=== PATIENT | female | born 1955 | race Caucasian/White ===

== ENCOUNTER 2017-07-06 22:44 | Inpatient (IN) | payer OTHER ==
[~2017-07-06] VITALS: Ht 157.5 cm; Wt 57.5 kg
[2017-07-06 23:25] LABS: HEMATOCRIT 38.9 % (36.0-46.0); HEMOGLOBIN 12.8 G/DL (11.9-15.5); MCH 28.2 PG (29.0-34.0); MCHC 32.9 G/DL (30.0-36.0); MCV 85.7 FL (83-99); PLATELET COUNT 229 K/uL (156-360); RBC DIS.WIDTH-CV 12.1 % (11.8-14.6); RBC DIS.WIDTH-SD 38.4 % (39-53); RED BLOOD COUNT 4.54 M/uL (3.80-5.20); WHITE BLOOD COUNT 7.2 K/uL (4.1-10.2)
[2017-07-06 23:29] LABS: CARBON DIOXIDE (BICARBONATE) 29.1 MEQ/L (20-31)
[2017-07-06 23:38] LABS: ALBUMIN 4.3 g/dL (3.2-4.8); CHLORIDE 106 mEq/L (99-109); POTASSIUM 3.7 mEq/L (3.7-5.4); SODIUM 142 mEq/L (136-147)
[2017-07-06 23:40] LABS: GLUCOSE 114 mg/dL (70-99); TOTAL PROTEIN 7.6 g/dL (6.4-8.3)
[2017-07-06 23:42] LABS: TOTAL BILIRUBIN 0.3 mg/dL (0.0-1.0)
[2017-07-06 23:43] LABS: SERUM ETHYL ALCOHOL < 10 mg/dL
[2017-07-06 23:44] LABS: CREATININE 0.7 mg/dL (0.6-1.3); GFR ESTIMATE (CALCULATED) > 59 mL/min/
[2017-07-06 23:45] LABS: ALKALINE PHOSPHATASE 106 IU/L (3-129); AST (GOT) 25 IU/L (2-34)
[2017-07-06 23:46] LABS: UREA NITROGEN (BUN) 13 mg/dL (9-23)
[2017-07-06 23:47] LABS: SALICYLATE < 5.0 MG/DL (15-30)
[2017-07-06 23:48] LABS: ACETAMINOPHEN (TYLENOL) < 10 mcg/mL (10-30); ALT (GPT) 8 IU/L (3-49); LIPASE 14 U/L (1.0-51.0)
[2017-07-07] VITALS (27 sets, daily range): BP systolic 129–180; BP diastolic 70–87
[2017-07-07 01:16] LABS: INTER. NORMALIZED RATIO 1.2
[2017-07-07 02:02] LABS: BASE EXCESS -0.2 mEq/L (-3 to +3); BICARBONATE 25.9 mEq/L (22-26); CARBOXY HGB 2.8 % (0-5); COMMENTS - BLOOD GASES A+C+; DEVICE VENT; METHEMOGLOBIN 1.1 % (0-1.5); PCO2 48 mm Hg (35-45); PO2 396 mm Hg (80-100); SITE RR; pH 7.34 (7.35-7.45)
[2017-07-07 02:03] LABS: FI02 100 %; MECHANICAL RATE 16 resp/min; MODE A/C; PEEP 8 CM/H20; PRES. SUPPORT 0 CM/H2O; TIDAL VOLUME 400 ML; TOTAL RESP RATE 16 resp/min
[2017-07-07 02:06] LABS: AMPHETAMINE NEGATIVE (500 ng/mL); BARBITURATES NEGATIVE (200 ng/mL); BENZODIAZEPINES PRESUMPTIVE POSITIVE (150 ng/mL); BUPRENORPHINE NEGATIVE (10 ng/mL); COCAINE NEGATIVE (150 ng/mL); METHADONE PRESUMPTIVE POSITIVE (200 ng/mL); METHAMPHETAMINE NEGATIVE (500 ng/mL); OPIATES (MORPHINE) PRESUMPTIVE POSITIVE (100 ng/mL); OXYCODONE PRESUMPTIVE POSITIVE (100 ng/mL); PHENCYCLIDINE NEGATIVE (25 ng/mL); PROPOXYPHENE NEGATIVE (300 ng/mL); THC CANNABINOIDS NEGATIVE (50 ng/mL); TRICYCLIC ANTIDEPRESSANTS NEGATIVE (300 ng/mL)
[2017-07-07 05:37] LABS: BENZODIAZEPINES, URINE SCREEN POSITIVE (200 ng/mL)
[2017-07-07 06:02] LABS: CHLORIDE 105 MEQ/L (99-109); CREATININE 0.6 MG/DL (0.6-1.3); GFR ESTIMATE (CALCULATED) > 59 mL/min/; GLUCOSE 146 mg/dL (70-99); POTASSIUM 3.3 MEQ/L (3.7-5.4); SODIUM 141 MEQ/L (136-147); UREA NITROGEN (BUN) 11 mg/dL (9-23)
[2017-07-07 06:12] LABS: BASOPHIL (%) 0.3 % (0-1); BASOPHIL COUNT 0.1 K/uL (0-0.1); EOSINOPHIL (%) 0.1 % (0-5); HEMATOCRIT 35.2 % (36.0-46.0); HEMOGLOBIN 11.5 G/DL (11.9-15.5); IMMATURE GRANULOCYTE (%) 0.5 % (0.0-0.7); LYMPHOCYTE (%) 3.2 % (15-42); LYMPHOCYTE COUNT 0.6 K/uL (1.0-2.8); MCH 28.3 PG (29.0-34.0); MCHC 32.7 G/DL (30.0-36.0); MCV 86.5 FL (83-99); MONOCYTE (%) 3.7 % (3-12); MONOCYTE COUNT 0.7 K/uL (0-0.8); NEUTROPHIL (%) 92.2 % (45-76); NEUTROPHIL COUNT 17.5 K/uL (1.8-6.4); PLATELET COUNT 196 K/uL (156-360); RBC DIS.WIDTH-CV 12.5 % (11.8-14.6); RBC DIS.WIDTH-SD 39.5 % (39-53); RED BLOOD COUNT 4.07 M/uL (3.80-5.20)
[2017-07-07 09:49] LABS: HEMOGLOBIN A1c (GLYCOHEMOGLOB) 5.2 % (Below 5.7)
[2017-07-08] VITALS (21 sets, daily range): BP systolic 115–174; BP diastolic 61–106
[2017-07-08 08:47] LABS: INTER. NORMALIZED RATIO 1.3
[2017-07-08 08:50] LABS: PTT 30.8 SEC (25-37)
[2017-07-08 09:16] LABS: ALBUMIN 3.4 G/DL (3.2-4.8); ALKALINE PHOSPHATASE 74 IU/L (3-129); ALT (GPT) 10 IU/L (3-49); AST (GOT) 29 IU/L (2-34); CREATININE 0.4 MG/DL (0.6-1.3); GFR ESTIMATE (CALCULATED) > 59 mL/min/; GLUCOSE 165 mg/dL (70-99); POTASSIUM 3.5 MEQ/L (3.7-5.4); SODIUM 148 MEQ/L (136-147); TOTAL BILIRUBIN 0.3 MG/DL (0.0-1.0); TOTAL PROTEIN 6.5 G/DL (6.4-8.3); UREA NITROGEN (BUN) 7 mg/dL (9-23)
[2017-07-08 09:20] LABS: CHLORIDE 116 MEQ/L (99-109)
[2017-07-09] VITALS (23 sets, daily range): BP systolic 102–153; BP diastolic 56–82
[2017-07-09 06:38] LABS: BASOPHIL (%) 0.3 % (0-1); EOSINOPHIL (%) 0.1 % (0-5); HEMATOCRIT 30.9 % (36.0-46.0); HEMOGLOBIN 9.7 G/DL (11.9-15.5); IMMATURE GRANULOCYTE (%) 1.1 % (0.0-0.7); LYMPHOCYTE (%) 12.4 % (15-42); LYMPHOCYTE COUNT 1.9 K/uL (1.0-2.8); MCH 27.7 PG (29.0-34.0); MCHC 31.4 G/DL (30.0-36.0); MCV 88.3 FL (83-99); MONOCYTE (%) 7.2 % (3-12); MONOCYTE COUNT 1.1 K/uL (0-0.8); NEUTROPHIL (%) 78.9 % (45-76); NEUTROPHIL COUNT 12.2 K/uL (1.8-6.4); PLATELET COUNT 143 K/uL (156-360); RBC DIS.WIDTH-CV 12.8 % (11.8-14.6); RBC DIS.WIDTH-SD 41.3 % (39-53); WHITE BLOOD COUNT 15.5 K/uL (4.1-10.2)
[2017-07-09 07:42] LABS: ALBUMIN 3.1 G/DL (3.2-4.8); CHLORIDE 119 MEQ/L (99-109); MAGNESIUM 1.7 mg/dl (1.3-2.7); POTASSIUM 3.3 MEQ/L (3.7-5.4); SODIUM 149 MEQ/L (136-147); TOTAL BILIRUBIN 0.4 MG/DL (0.0-1.0)
[2017-07-09 07:47] LABS: ALKALINE PHOSPHATASE 71 IU/L (3-129); ALT (GPT) 8 IU/L (3-49); AST (GOT) 20 IU/L (2-34); CREATININE 0.4 MG/DL (0.6-1.3); GFR ESTIMATE (CALCULATED) > 59 mL/min/; GLUCOSE 130 mg/dL (70-99); PHOSPHORUS 2.2 mg/dL (2.5-4.9); UREA NITROGEN (BUN) 11 mg/dL (9-23)
[2017-07-09 07:49] LABS: TOTAL PROTEIN 5.5 G/DL (6.4-8.3)
[2017-07-09 10:33] LABS: INTER. NORMALIZED RATIO 1.2
[2017-07-09 10:36] LABS: PTT 29.2 SEC (25-37)
[2017-07-09 10:57] LABS: HIGH-SENS C-REACTIVE PROTEIN > 8.00 MG/DL (0.02-0.20)
[2017-07-10] VITALS (25 sets, daily range): BP systolic 113–167; BP diastolic 59–84
[2017-07-10 05:41] LABS: BASOPHIL (%) 0.4 % (0-1); BASOPHIL COUNT 0.1 K/uL (0-0.1); EOSINOPHIL (%) 0.6 % (0-5); EOSINOPHIL COUNT 0.1 K/uL (0-0.3); HEMATOCRIT 30.4 % (36.0-46.0); HEMOGLOBIN 9.5 G/DL (11.9-15.5); IMMATURE GRANULOCYTE (%) 0.5 % (0.0-0.7); LYMPHOCYTE (%) 17.5 % (15-42); LYMPHOCYTE COUNT 2.1 K/uL (1.0-2.8); MCH 27.5 PG (29.0-34.0); MCHC 31.3 G/DL (30.0-36.0); MCV 88.1 FL (83-99); MONOCYTE (%) 6.1 % (3-12); MONOCYTE COUNT 0.7 K/uL (0-0.8); NEUTROPHIL (%) 74.9 % (45-76); NEUTROPHIL COUNT 8.8 K/uL (1.8-6.4); RBC DIS.WIDTH-CV 13.2 % (11.8-14.6); RBC DIS.WIDTH-SD 42.3 % (39-53); RED BLOOD COUNT 3.45 M/uL (3.80-5.20); WHITE BLOOD COUNT 11.7 K/uL (4.1-10.2)
[2017-07-10 06:08] LABS: ALBUMIN 2.7 G/DL (3.2-4.8); ALKALINE PHOSPHATASE 58 IU/L (3-129); ALT (GPT) 9 IU/L (3-49); AST (GOT) 19 IU/L (2-34); CHLORIDE 115 MEQ/L (99-109); CREATININE 0.4 MG/DL (0.6-1.3); GFR ESTIMATE (CALCULATED) > 59 mL/min/; GLUCOSE 137 mg/dL (70-99); HIGH-SENS C-REACTIVE PROTEIN 4.78 MG/DL (0.02-0.20); MAGNESIUM 1.8 mg/dl (1.3-2.7); POTASSIUM 3.6 MEQ/L (3.7-5.4); SODIUM 144 MEQ/L (136-147); TOTAL PROTEIN 5.6 G/DL (6.4-8.3); UREA NITROGEN (BUN) 11 mg/dL (9-23)
[2017-07-10 06:15] LABS: PHOSPHORUS 3.2 mg/dL (2.5-4.9); TOTAL BILIRUBIN 0.3 MG/DL (0.0-1.0)
[2017-07-10 06:25] LABS: PLAT.SUFFICIENCY DECREASED; PLATELET CLUMPS PRESENT - PLATELET COUNTS APPEARS DECREASED
[2017-07-10 06:26] LABS: PLATELET COUNT UNABLE TO REPORT K/uL (156-360)
[2017-07-11] VITALS (23 sets, daily range): BP systolic 132–179; BP diastolic 71–99
[2017-07-11 06:09] LABS: BASOPHIL (%) 0.5 % (0-1); BASOPHIL COUNT 0.1 K/uL (0-0.1); EOSINOPHIL (%) 0.1 % (0-5); HEMATOCRIT 34.8 % (36.0-46.0); HEMOGLOBIN 11.2 G/DL (11.9-15.5); LYMPHOCYTE COUNT 2.3 K/uL (1.0-2.8); MCH 27.7 PG (29.0-34.0); MCHC 32.2 G/DL (30.0-36.0); MCV 86.1 FL (83-99); MONOCYTE (%) 9.2 % (3-12); MONOCYTE COUNT 1.2 K/uL (0-0.8); NEUTROPHIL (%) 72.2 % (45-76); NEUTROPHIL COUNT 9.6 K/uL (1.8-6.4); PLATELET COUNT 214 K/uL (156-360); RBC DIS.WIDTH-CV 12.8 % (11.8-14.6); RBC DIS.WIDTH-SD 40.1 % (39-53); RED BLOOD COUNT 4.04 M/uL (3.80-5.20); WHITE BLOOD COUNT 13.3 K/uL (4.1-10.2)
[2017-07-11 06:28] LABS: ALBUMIN 3.5 G/DL (3.2-4.8); ALKALINE PHOSPHATASE 62 IU/L (3-129); ALT (GPT) 12 IU/L (3-49); AST (GOT) 26 IU/L (2-34); CHLORIDE 111 MEQ/L (99-109); CREATININE 0.4 MG/DL (0.6-1.3); GFR ESTIMATE (CALCULATED) > 59 mL/min/; GLUCOSE 114 mg/dL (70-99); MAGNESIUM 1.8 mg/dl (1.3-2.7); PHOSPHORUS 3.2 mg/dL (2.5-4.9); POTASSIUM 3.4 MEQ/L (3.7-5.4); SODIUM 147 MEQ/L (136-147); UREA NITROGEN (BUN) 13 mg/dL (9-23)
[2017-07-11 06:33] LABS: TOTAL BILIRUBIN 0.6 MG/DL (0.0-1.0); TOTAL PROTEIN 6.7 G/DL (6.4-8.3)
[2017-07-11 16:58] LABS: HIGH-SENS C-REACTIVE PROTEIN 4.22 MG/DL (0.02-0.20)
[2017-07-12] VITALS (22 sets, daily range): BP systolic 119–171; BP diastolic 68–93
[2017-07-12 05:11] LABS: BASOPHIL (%) 0.5 % (0-1); BASOPHIL COUNT 0.1 K/uL (0-0.1); EOSINOPHIL (%) 0 % (0-5); HEMATOCRIT 35.1 % (36.0-46.0); HEMOGLOBIN 11.6 G/DL (11.9-15.5); IMMATURE GRANULOCYTE (%) 1.7 % (0.0-0.7); LYMPHOCYTE (%) 14.4 % (15-42); LYMPHOCYTE COUNT 2.5 K/uL (1.0-2.8); MCH 28.4 PG (29.0-34.0); MCV 85.8 FL (83-99); MONOCYTE (%) 11.6 % (3-12); NEUTROPHIL (%) 71.8 % (45-76); NEUTROPHIL COUNT 12.5 K/uL (1.8-6.4); PLATELET COUNT 265 K/uL (156-360); RBC DIS.WIDTH-CV 13.2 % (11.8-14.6); RBC DIS.WIDTH-SD 41.3 % (39-53); RED BLOOD COUNT 4.09 M/uL (3.80-5.20); WHITE BLOOD COUNT 17.4 K/uL (4.1-10.2)
[2017-07-12 05:23] LABS: ALBUMIN 3.7 g/dL (3.2-4.8); CHLORIDE 110 mEq/L (99-109); POTASSIUM 3.5 mEq/L (3.7-5.4); SODIUM 146 mEq/L (136-147)
[2017-07-12 05:24] LABS: MAGNESIUM 2.1 mg/dL (1.3-2.7)
[2017-07-12 05:26] LABS: GLUCOSE 133 mg/dL (70-99); TOTAL PROTEIN 6.9 g/dL (6.4-8.3)
[2017-07-12 05:29] LABS: PHOSPHORUS 4.3 mg/dL (2.5-4.9)
[2017-07-12 05:30] LABS: CREATININE 0.5 mg/dL (0.6-1.3); GFR ESTIMATE (CALCULATED) > 59 mL/min/
[2017-07-12 05:31] LABS: AST (GOT) 24 IU/L (2-34); UREA NITROGEN (BUN) 17 mg/dL (9-23)
[2017-07-12 05:32] LABS: ALT (GPT) 14 IU/L (3-49)
[2017-07-12 05:39] LABS: ALKALINE PHOSPHATASE 70 IU/L (3-129); TOTAL BILIRUBIN 0.7 mg/dL (0.0-1.0)
[2017-07-13] VITALS (26 sets, daily range): BP systolic 114–163; BP diastolic 60–88
[2017-07-13 06:10] LABS: BASOPHIL (%) 0.4 % (0-1); BASOPHIL COUNT 0.1 K/uL (0-0.1); EOSINOPHIL (%) 0.2 % (0-5); HEMATOCRIT 31.6 % (36.0-46.0); HEMOGLOBIN 9.8 G/DL (11.9-15.5); IMMATURE GRANULOCYTE (%) 1.2 % (0.0-0.7); LYMPHOCYTE (%) 18.2 % (15-42); LYMPHOCYTE COUNT 2.3 K/uL (1.0-2.8); MCH 27.3 PG (29.0-34.0); MONOCYTE (%) 11.4 % (3-12); MONOCYTE COUNT 1.5 K/uL (0-0.8); NEUTROPHIL (%) 68.6 % (45-76); NEUTROPHIL COUNT 8.9 K/uL (1.8-6.4); PLATELET COUNT 272 K/uL (156-360); RBC DIS.WIDTH-CV 13.2 % (11.8-14.6); RBC DIS.WIDTH-SD 42.5 % (39-53); RED BLOOD COUNT 3.59 M/uL (3.80-5.20); WHITE BLOOD COUNT 12.9 K/uL (4.1-10.2)
[2017-07-13 06:32] LABS: ALBUMIN 3.1 G/DL (3.2-4.8); ALKALINE PHOSPHATASE 48 IU/L (3-129); ALT (GPT) 11 IU/L (3-49); AST (GOT) 20 IU/L (2-34); CHLORIDE 111 MEQ/L (99-109); CREATININE 0.4 MG/DL (0.6-1.3); GFR ESTIMATE (CALCULATED) > 59 mL/min/; GLUCOSE 125 mg/dL (70-99); MAGNESIUM 1.9 mg/dl (1.3-2.7); PHOSPHORUS 3.5 mg/dL (2.5-4.9); POTASSIUM 3.9 MEQ/L (3.7-5.4); SODIUM 144 MEQ/L (136-147); TOTAL BILIRUBIN 0.5 MG/DL (0.0-1.0); TOTAL PROTEIN 6.1 G/DL (6.4-8.3); UREA NITROGEN (BUN) 22 mg/dL (9-23)
[2017-07-13 11:38] LABS: BASE EXCESS -0.1 mEq/L (-3 to +3); BICARBONATE 23.6 mEq/L (22-26); CARBOXY HGB 2.6 % (0-5); METHEMOGLOBIN 0.6 % (0-1.5)
[2017-07-13 11:39] LABS: COMMENTS - BLOOD GASES A+C+; DEVICE VENT; FI02 30 %; MODE SPONT; PCO2 34 mm Hg (35-45); PO2 75 mm Hg (80-100); SITE RR; TOTAL RESP RATE 23 resp/min; pH 7.45 (7.35-7.45)
[2017-07-13 11:40] LABS: PEEP 5 CM/H20; PRES. SUPPORT 10 CM/H2O
[2017-07-14] VITALS (27 sets, daily range): BP systolic 102–167; BP diastolic 54–93
[2017-07-14 04:42] LABS: BASOPHIL (%) 0.4 % (0-1); BASOPHIL COUNT 0.1 K/uL (0-0.1); EOSINOPHIL (%) 0.6 % (0-5); EOSINOPHIL COUNT 0.1 K/uL (0-0.3); HEMATOCRIT 33.3 % (36.0-46.0); HEMOGLOBIN 11.2 G/DL (11.9-15.5); IMMATURE GRANULOCYTE (%) 1.3 % (0.0-0.7); LYMPHOCYTE (%) 19.5 % (15-42); LYMPHOCYTE COUNT 2.7 K/uL (1.0-2.8); MCH 28.6 PG (29.0-34.0); MCHC 33.6 G/DL (30.0-36.0); MCV 84.9 FL (83-99); MONOCYTE COUNT 1.7 K/uL (0-0.8); NEUTROPHIL (%) 66.2 % (45-76); NEUTROPHIL COUNT 9.3 K/uL (1.8-6.4); PLATELET COUNT 344 K/uL (156-360); RBC DIS.WIDTH-CV 12.8 % (11.8-14.6); RBC DIS.WIDTH-SD 39.1 % (39-53); RED BLOOD COUNT 3.92 M/uL (3.80-5.20)
[2017-07-14 04:50] LABS: CHLORIDE 108 mEq/L (99-109); POTASSIUM 3.6 mEq/L (3.7-5.4); SODIUM 141 mEq/L (136-147)
[2017-07-14 04:51] LABS: GLUCOSE 129 mg/dL (70-99)
[2017-07-14 04:55] LABS: CREATININE 0.6 mg/dL (0.6-1.3); GFR ESTIMATE (CALCULATED) > 59 mL/min/
[2017-07-14 04:56] LABS: UREA NITROGEN (BUN) 21 mg/dL (9-23)
[2017-07-15] VITALS (15 sets, daily range): BP systolic 116–162; BP diastolic 68–901
[2017-07-15 13:57] LABS: BASE EXCESS 0.1 mEq/L (-3 to +3); BICARBONATE 22.3 mEq/L (22-26); CARBOXY HGB 1.4 % (0-5); COMMENTS - BLOOD GASES C+; DEVICE VENT; FI02 30 %; METHEMOGLOBIN 1.4 % (0-1.5); MODE TC; PCO2 28 mm Hg (35-45); PEEP 5 CM/H20; PO2 113 mm Hg (80-100); SITE LR; TIDAL VOLUME 438 ML; TOTAL RESP RATE 25 resp/min; pH 7.51 (7.35-7.45)
[2017-07-15 15:08] LABS: ALBUMIN 3.6 G/DL (3.2-4.8); ALKALINE PHOSPHATASE 68 IU/L (3-129); ALT (GPT) 19 IU/L (3-49); AST (GOT) 28 IU/L (2-34); CHLORIDE 105 MEQ/L (99-109); CREATININE 0.4 MG/DL (0.6-1.3); GFR ESTIMATE (CALCULATED) > 59 mL/min/; GLUCOSE 117 mg/dL (70-99); POTASSIUM 3.6 MEQ/L (3.7-5.4); SODIUM 137 MEQ/L (136-147); TOTAL BILIRUBIN 0.8 MG/DL (0.0-1.0); TOTAL PROTEIN 7.2 G/DL (6.4-8.3); UREA NITROGEN (BUN) 21 mg/dL (9-23)
[2017-07-16] VITALS (22 sets, daily range): BP systolic 126–156; BP diastolic 71–91
[2017-07-16 08:07] LABS: HEMATOCRIT 36.7 % (36.0-46.0); MCH 28.1 PG (29.0-34.0); MCHC 32.7 G/DL (30.0-36.0); MCV 85.9 FL (83-99); PLATELET COUNT 441 K/uL (156-360); RBC DIS.WIDTH-CV 12.8 % (11.8-14.6); RBC DIS.WIDTH-SD 39.8 % (39-53); RED BLOOD COUNT 4.27 M/uL (3.80-5.20); WHITE BLOOD COUNT 15.5 K/uL (4.1-10.2)
[2017-07-16 08:42] LABS: ALBUMIN 3.6 G/DL (3.2-4.8); ALKALINE PHOSPHATASE 73 IU/L (3-129); ALT (GPT) 20 IU/L (3-49); AST (GOT) 26 IU/L (2-34); CHLORIDE 106 MEQ/L (99-109); CREATININE 0.5 MG/DL (0.6-1.3); GFR ESTIMATE (CALCULATED) > 59 mL/min/; GLUCOSE 125 mg/dL (70-99); MAGNESIUM 2.1 mg/dl (1.3-2.7); PHOSPHORUS 3.6 mg/dL (2.5-4.9); POTASSIUM 4.3 MEQ/L (3.7-5.4); SODIUM 137 MEQ/L (136-147); TOTAL BILIRUBIN 0.6 MG/DL (0.0-1.0); TOTAL PROTEIN 6.9 G/DL (6.4-8.3); UREA NITROGEN (BUN) 23 mg/dL (9-23)
[2017-07-17] VITALS (24 sets, daily range): BP systolic 112–147; BP diastolic 51–87
[2017-07-18] VITALS (24 sets, daily range): BP systolic 112–155; BP diastolic 68–96
[2017-07-19] VITALS (24 sets, daily range): BP systolic 120–156; BP diastolic 67–90
[2017-07-20] VITALS (24 sets, daily range): BP systolic 111–168; BP diastolic 66–92
[2017-07-20 08:23] LABS: BASOPHIL (%) 0.6 % (0-1); BASOPHIL COUNT 0.1 K/uL (0-0.1); EOSINOPHIL (%) 1.1 % (0-5); EOSINOPHIL COUNT 0.1 K/uL (0-0.3); HEMATOCRIT 35.9 % (36.0-46.0); HEMOGLOBIN 11.9 G/DL (11.9-15.5); IMMATURE GRANULOCYTE (%) 0.5 % (0.0-0.7); LYMPHOCYTE (%) 22.4 % (15-42); MCH 28.3 PG (29.0-34.0); MCHC 33.1 G/DL (30.0-36.0); MCV 85.5 FL (83-99); MONOCYTE (%) 9.2 % (3-12); MONOCYTE COUNT 1.2 K/uL (0-0.8); NEUTROPHIL (%) 66.2 % (45-76); NEUTROPHIL COUNT 8.8 K/uL (1.8-6.4); PLATELET COUNT 497 K/uL (156-360); RBC DIS.WIDTH-CV 11.9 % (11.8-14.6); RBC DIS.WIDTH-SD 36.8 % (39-53); WHITE BLOOD COUNT 13.2 K/uL (4.1-10.2)
[2017-07-20 08:30] LABS: INTER. NORMALIZED RATIO 1.3
[2017-07-20 08:33] LABS: PTT 29.4 SEC (25-37)
[2017-07-20 08:55] LABS: ALBUMIN 3.3 G/DL (3.2-4.8); ALKALINE PHOSPHATASE 59 IU/L (3-129); ALT (GPT) 19 IU/L (3-49); AST (GOT) 26 IU/L (2-34); CHLORIDE 101 MEQ/L (99-109); CREATININE 0.4 MG/DL (0.6-1.3); GFR ESTIMATE (CALCULATED) > 59 mL/min/; GLUCOSE 118 mg/dL (70-99); MAGNESIUM 1.9 mg/dl (1.3-2.7); PHOSPHORUS 4.2 mg/dL (2.5-4.9); POTASSIUM 4.4 MEQ/L (3.7-5.4); SODIUM 136 MEQ/L (136-147); TOTAL BILIRUBIN 0.5 MG/DL (0.0-1.0); TOTAL PROTEIN 6.9 G/DL (6.4-8.3); UREA NITROGEN (BUN) 22 mg/dL (9-23)
[2017-07-21] VITALS (22 sets, daily range): BP systolic 109–152; BP diastolic 61–82
[2017-07-22] VITALS (21 sets, daily range): BP systolic 114–163; BP diastolic 71–105
[2017-07-22 07:30] LABS: HEMATOCRIT 33.8 % (36.0-46.0); HEMOGLOBIN 11.1 G/DL (11.9-15.5); MCHC 32.8 G/DL (30.0-36.0); MCV 85.4 FL (83-99); PLATELET COUNT 575 K/uL (156-360); RBC DIS.WIDTH-CV 11.9 % (11.8-14.6); RBC DIS.WIDTH-SD 36.3 % (39-53); RED BLOOD COUNT 3.96 M/uL (3.80-5.20); WHITE BLOOD COUNT 11.6 K/uL (4.1-10.2)
[2017-07-22 07:59] LABS: CHLORIDE 102 MEQ/L (99-109); CREATININE 0.4 MG/DL (0.6-1.3); GFR ESTIMATE (CALCULATED) > 59 mL/min/; GLUCOSE 114 mg/dL (70-99); PHOSPHORUS 3.9 mg/dL (2.5-4.9); POTASSIUM 4.4 MEQ/L (3.7-5.4); SODIUM 137 MEQ/L (136-147); UREA NITROGEN (BUN) 22 mg/dL (9-23)
[2017-07-23] VITALS (20 sets, daily range): BP systolic 131–169; BP diastolic 64–151
[2017-07-23 14:22] LABS: CHLORIDE 107 MEQ/L (99-109); CREATININE 0.4 MG/DL (0.6-1.3); GFR ESTIMATE (CALCULATED) > 59 mL/min/; GLUCOSE 95 mg/dL (70-99); POTASSIUM 4.1 MEQ/L (3.7-5.4); SODIUM 139 MEQ/L (136-147); UREA NITROGEN (BUN) 19 mg/dL (9-23)
[2017-07-24] VITALS (10 sets, daily range): BP systolic 95–151; BP diastolic 54–81
[2017-07-24 14:31] LABS: HEMOGLOBIN 11.1 G/DL (11.9-15.5); MCH 28.2 PG (29.0-34.0); MCHC 33.6 G/DL (30.0-36.0); MCV 83.8 FL (83-99); PLATELET COUNT 535 K/uL (156-360); RBC DIS.WIDTH-CV 11.7 % (11.8-14.6); RBC DIS.WIDTH-SD 35.6 % (39-53); RED BLOOD COUNT 3.94 M/uL (3.80-5.20); WHITE BLOOD COUNT 11.6 K/uL (4.1-10.2)
[2017-07-24 14:41] LABS: CHLORIDE 106 MEQ/L (99-109); POTASSIUM 3.5 MEQ/L (3.7-5.4); SODIUM 138 MEQ/L (136-147)
[2017-07-24 14:47] LABS: CREATININE 0.3 MG/DL (0.6-1.3); GFR ESTIMATE (CALCULATED) > 59 mL/min/; GLUCOSE 91 mg/dL (70-99); UREA NITROGEN (BUN) 14 mg/dL (9-23)
[2017-07-25 07:46] VITALS: BP 131/68
[2017-07-25 15:33] VITALS: BP 117/56
[2017-07-25 20:58] VITALS: BP 105/58
[2017-07-26 00:08] VITALS: BP 110/65
[2017-07-26 07:55] VITALS: BP 131/71
[2017-07-26 08:36] LABS: HEMATOCRIT 34.5 % (36.0-46.0); HEMOGLOBIN 11.5 G/DL (11.9-15.5); MCHC 33.3 G/DL (30.0-36.0); MCV 83.9 FL (83-99); PLATELET COUNT 508 K/uL (156-360); RBC DIS.WIDTH-CV 11.9 % (11.8-14.6); RED BLOOD COUNT 4.11 M/uL (3.80-5.20); WHITE BLOOD COUNT 9.8 K/uL (4.1-10.2)
[2017-07-26 09:35] LABS: CHLORIDE 102 MEQ/L (99-109); CREATININE 0.4 MG/DL (0.6-1.3); GFR ESTIMATE (CALCULATED) > 59 mL/min/; GLUCOSE 96 mg/dL (70-99); SODIUM 137 MEQ/L (136-147); UREA NITROGEN (BUN) 13 mg/dL (9-23)
[2017-07-26 09:37] LABS: POTASSIUM 4.3 MEQ/L (3.7-5.4)
[2017-07-26 16:00] VITALS: BP 133/70
[2017-07-26 23:30] VITALS: BP 107/61
[2017-07-27 08:00] VITALS: BP 128/73
[2017-07-27 15:51] VITALS: BP 100/60
[2017-07-27 23:28] VITALS: BP 109/65
[2017-07-28 07:54] VITALS: BP 122/74
[2017-07-28] MEDS ORDERED: LABETALOL HCL200 MG GT (10:52)
[2017-07-28] MEDS ORDERED: DUONEB 2.5-0.5 M3 ML AEROSOL (10:52)
[2017-07-28] MEDS ORDERED: METOCLOPRAM5 MG/5 ML GT (10:53)
[2017-07-28 12:24] LABS: MAGNESIUM 1.9 mg/dl (1.3-2.7); PHOSPHORUS 3.2 mg/dL (2.5-4.9)
[2017-07-28 16:17] VITALS: BP 128/71
[2017-07-29 00:18] VITALS: BP 112/62
[2017-07-29 07:54] VITALS: BP 126/62
[2017-07-29 16:10] VITALS: BP 124/60
[2017-07-30 00:03] VITALS: BP 109/55
[2017-07-30 07:47] VITALS: BP 141/76
[2017-07-30 15:21] VITALS: BP 102/54
[2017-07-31] VITALS: BP 123/67
[2017-07-31 07:48] VITALS: BP 165/80
== END 2017-07-31 15:13 | DRG 4 ==
LOC: EME 22:44 → 4WEST 07-07 01:21 → 5SOUTH 07-07 01:21 → EDOF 07-07 01:21 → ENRESERV 07-07 01:24 → 4WEST 07-07 02:50 → ENRESERV 07-23 14:09 → 4EAST 07-23 21:58 → ENRESERV 07-23 22:02 → 4WEST 07-23 22:07 → ENRESERV 07-24 18:25 → 5SOUTH 07-24 20:53
PROVIDERS: Emergency Medicine; Family Medicine; Hospitalist; Internal Medicine; Internal Medicine Critical Care Medicine; Internal Medicine Pulmonary Disease; Obstetrics & Gynecology; Specialist
PROC: 5A1955Z Respiratory Ventilation, Greater than 96 Consecutive Hours (ICD-10-PCS; principal; 2017-07-07)
PROC: 0BH17EZ Insertion of Endotracheal Airway into Trachea, Via Natural or Artificial Opening (ICD-10-PCS; principal; 2017-07-07)
PROC: 0DH63UZ Insertion of Feeding Device into Stomach, Percutaneous Approach (ICD-10-PCS; 2017-07-22)
PROC: 0B113F4 Bypass Trachea to Cutaneous with Tracheostomy Device, Percutaneous Approach (ICD-10-PCS; 2017-07-22)
PROC: 3E0G76Z Introduction of Nutritional Substance into Upper GI, Via Natural or Artificial Opening (ICD-10-PCS; 2017-07-22)
DX: I61.5 Nontraumatic intracerebral hemorrhage, intraventricular (principal); I61.0 Nontraumatic intracerebral hemorrhage in hemisphere, subcortical; I60.8 Other nontraumatic subarachnoid hemorrhage; I61.8 Other nontraumatic intracerebral hemorrhage; G81.91 Hemiplegia, unspecified affecting right dominant side; J69.0 Pneumonitis due to inhalation of food and vomit; J15.5 Pneumonia due to Escherichia coli; J96.21 Acute and chronic respiratory failure with hypoxia; G93.1 Anoxic brain damage, not elsewhere classified; E44.0 Moderate protein-calorie malnutrition; Z68.1 Body mass index [BMI] 19.9 or less, adult; T40.1X1A Poisoning by heroin, accidental (unintentional), initial encounter; T42.4X1A Poisoning by benzodiazepines, accidental (unintentional), initial encounter; R41.82 Altered mental status, unspecified; Z66 Do not resuscitate; G91.4 Hydrocephalus in diseases classified elsewhere; G93.89 Other specified disorders of brain; I16.0 Hypertensive urgency; I10 Essential (primary) hypertension; G31.9 Degenerative disease of nervous system, unspecified; I69.311 Memory deficit following cerebral infarction; I69.398 Other sequelae of cerebral infarction; H54.8 Legal blindness, as defined in USA; G89.4 Chronic pain syndrome; Z79.891 Long term (current) use of opiate analgesic; F11.10 Opioid abuse, uncomplicated; F17.200 Nicotine dependence, unspecified, uncomplicated; Z91.19 Patient's noncompliance with other medical treatment and regimen; R94.31 Abnormal electrocardiogram [ECG] [EKG]
CPT/HCPCS: 31720; 36600; 70450; 71045; 80048; 80053; 82803; 82948; 83036; 83605; 83690; 83735; 83930; 84100; 84145 90; 84999; 85025; 85027; 85610; 85730; 86141; 87040; 87070; 87077; 87186; 87205; 87641; 92507 GN; 92523 GN; 92526 GN; 93005; 94002; 94003; 94640; 94640 76; 94760; 94799; 95819; 97530 GP; 99202; 99281; 99285; G0480; J0295; J0360; J0696; J1940; J2060; J2310; J2405; J2704; J3010; J3475; J3480; J7030; J7040; J7042; J7050; P9047; S0028

== ENCOUNTER → 2017-09-03 | Outpatient (CLI) | payer OTHER ==
[~2017-09-03] MED LIST: DUONEB 2.5-0.5 M3 ML AEROSOL; LABETALOL HCL200 MG GT; METOCLOPRAM5 MG/5 ML GT
== END | disposition home or self-care (01) ==
LOC: RAD 09:00
DX: R13.10 Dysphagia, unspecified (principal); Z87.01 Personal history of pneumonia (recurrent); Z92.89 Personal history of other medical treatment
CPT/HCPCS: 74230; 92611 GN

== ENCOUNTER → 2017-10-02 | Outpatient (CLI) | payer OTHER | END | disposition home or self-care (01) | LOC: RAD 09-30 14:00 | DX: G93.89 Other specified disorders of brain (principal) | CPT/HCPCS: 70450 ==